=== PATIENT | female | born 1980 | race Caucasian/White ===

== ENCOUNTER 2022-08-02 02:54 | Emergency (ER) | payer OTHER ==
[2022-08-02 03:14] VITALS: BP 131/93; PULSE 89; RESP 20; TEMP 98.2; BMI 30.2
[2022-08-02] MEDS ORDERED: ONDANSETRON *ODT* 4 MG TABLET SL ONE (03:34)
[2022-08-02] MEDS ORDERED: ONDANSETRON *ODT* 4 MG TABLET ONE (03:36)
[2022-08-02 04:08] LABS: EPI CELLS >36 /uL (0-25.1); HCG,QUALITATIVE URINE Negative; HYALINE CASTS 1 /uL (0-3.1); URINE APPEARANCE CLEAR; URINE BACTERIA 114 /uL (0-1359); URINE BILIRUBIN NEGATIVE (NEGATIVE); URINE COLOR YELLOW; URINE GLUCOSE (UA) NEGATIVE (NEGATIVE); URINE KETONE NEGATIVE (NEGATIVE); URINE LEUK ESTERASE 2+ (NEGATIVE); URINE NITRITE NEGATIVE (NEGATIVE); URINE PROTEIN TRACE (NEGATIVE); URINE UROBILINOGEN 0.2 mg/dL (0.2-1.0); URINE WBC 57 /uL (0-25.8)
[2022-08-02 08:26] LABS: URINE RBC 90.7 /uL (0-23.9); YEAST NEGATIVE (NEGATIVE)
== END 2022-08-02 05:38 | disposition home or self-care (01) ==
LOC: JER 02:54
DX: R11.10 Vomiting, unspecified (principal); N94.6 Dysmenorrhea, unspecified
CPT/HCPCS: 81003; 84703; 87077; 87086; 93005; 93010; 99283-25; Q0162